=== PATIENT | female | born 1965 | race Caucasian/White ===

== ENCOUNTER 2021-06-10 13:50 | Emergency (ER) | payer OTHER ==
[2021-06-10] MEDS ORDERED: Ibuprofen 600 MG Tab PO ONE (14:16)
[2021-06-10] MEDS ORDERED: Amoxicillin/Clavulanate K 875-125 MG Tab PO ONE (14:16)
[2021-06-10] MEDS ORDERED: Lidocaine 1% 10 ML MDV INJECT ONE ×2 (14:17→15:00)
== END 2021-06-10 15:35 | disposition home or self-care (01) ==
LOC: JD.ED 13:50
DX: S51.851A Open bite of right forearm, initial encounter (principal); S01.85XA Open bite of other part of head, initial encounter; S41.151A Open bite of right upper arm, initial encounter; W54.0XXA Bitten by dog, initial encounter
CPT/HCPCS: 12002; 99283; A9270